=== PATIENT | female | born 1965 | race Caucasian/White ===

== ENCOUNTER 2016-09-21 07:31 | Observation (INO) ==
[2016-09-21] MEDS ORDERED: KETOROLAC 30 MG/ML INJECTION IVP ONE (07:58)
[2016-09-21] MEDS ORDERED: NS 1,000 ML IV ONE (07:58)
[2016-09-21] MEDS ORDERED: SALINE FLUSH 10ml SYRINGE IVF PRN (07:58)
[2016-09-21] MEDS ORDERED: CEFTRIAXONE 2 GM in NS 100 ML IV ONE (07:58)
[2016-09-21] MEDS ORDERED: AMOX/CLAV 875 MG/125 MG TABLET PO ONE (08:01)
--- NOTE | 2016-09-21 08:24 | Emergency Department Report ---
Animal Bite HPI - General Chief Complaint: Animal Bite Stated Complaint: Cat bite Time Seen by Provider: 09/21/16 07:58 - History of Present Illness HPI narrative: 51-year-old female bit on the left hand yesterday by her cat. Over the last month, her father has and there've been a lot of people in and out of the home. There are also doing some remodeling with espinosa being rebuilt, ducts being redone, some significant noise and activity going on with workers. The cat has been very traumatized and is very nervous right now. Patient tried to move him to allow a worker to get at a duct to clean. The cat went ballistic, biting her left hand and scratching and biting on her arm and leg. The cat does not normally active like this. She noted the cat really settled back down. The cat has had no aggressive behavior previously and shows no signs of illness. She noted that her hand began to hurt immediately after the bite and that it started hurting in the knuckle. The tooth penetrated on the palmar side of the hand, but the knuckle hurts on the other side of the hand were no tooth penetrated. During the day the pain became worse. She ultimately went to an urgent care last night and was given a shot of Rocephin and started on Augmentin 875. She did not sleep well last night because of the pain, stating that it was while the heart is nights she's ever had. The redness on her hand continue to grow overnight and she is presented to the ER now with increased pain, swelling and redness of the hand. She does feel some body aches as well. - Related Data Home Medications Medication Instructions Recorded Confirmed Cetirizine HCl [Aller-Gurinder] 10 mg PO HS #0 11/22/09 09/21/16 Acetaminophen [Acetaminophen Extra 1,000 mg PO Q4H PRN 09/21/16 09/21/16 Strength] Atorvastatin [Lipitor] 10 mg PO HS 09/21/16 09/21/16 Esomeprazole [NEXIUM 40 mg Capsule] 40 mg PO HS 09/21/16 09/21/16 Fenofibrate Nanocrystallized 145 mg PO HS 09/21/16 09/21/16 [Fenofibrate] Hydrocodone/APAP 7.5/325 [[place] 1 - 2 tab PO Q4H PRN 09/21/16 09/21/16 7.5/325] Meloxicam [Meloxicam] 15 mg PO HS 09/21/16 09/21/16 Nebivolol HCl [Bystolic] 10 mg PO HS 09/21/16 09/21/16 Previous Rx's Medication Instructions Recorded alprazolam 1 mg tablet 1 mg PO TID PRN #90 tab 08/17/16 amoxicillin 875 mg-potassium 1 tab PO BID 10 Days 09/20/16 clavulanate 125 mg tablet Allergies Allergy/AdvReac Type Severity Reaction Status Date / Time No Known Drug Allergies Allergy Unknown Verified 09/21/16 07:37 Review of Systems All systems: reviewed and negative except as stated PFSH Patient Stated Medical History Hypertension Yes Gastroesophageal Reflux Yes Disease Clinic Medical History (Last Reviewed 08/09/16 @ 15:48 by CEDRICK Nieto ) Hyperlipidemia (Acute Medical) Hypertension (Acute Medical) Insomnia (Acute Medical) Surgical History: *HYSTERECTOMY. *FUSION OF LOWER LUMBAR. *LEFT BOTH ROTATOR CUFF. *3 BILATERAL KNEE SURGERY. *BOTH TRIGGER FINGER RELEASE Family History: Family History (Last Reviewed 09/20/16 @ 16:33 by Laverne Jackson MA) Mother Lung cancer Father Pancreatic cancer - Social History Smoking status: Current every day smoker Physical Exam - Limitations Limitations: no limitations - General General appearance: alert - Normal Exams: Head:: Normocephalic without trauma Chest/Respirations:: Clear all jaime, with good airflow, and symmetry bilaterally Cardiovascular:: Regular rate and rhythm, without murmur or gallop, Pulses 2+ all extremities, capillary refill, <2 seconds all extremities - Extremities Exam Extremities exam: Present: other (left hand is examined, patient's second and third MTP show significant swelling and erythema warm to the touch on the dorsal side. Exquisitely tender to palpation. There is definite swelling over the extensor tendons on the back of the hand as well) Course Vital Signs Temperature 98.3 F 09/21/16 07:35 Pulse Rate 63 09/21/16 07:35 Respiratory Rate 16 09/21/16 07:35 Blood Pressure 170/85 H 09/21/16 07:35 Pulse Oximetry 100 09/21/16 07:35 Temperature 97.8 F 09/21/16 08:57 Pulse Rate 54 L 09/21/16 08:57 Respiratory Rate 16 09/21/16 08:57 Blood Pressure 158/86 H 09/21/16 08:57 Pulse Oximetry 98 09/21/16 08:57 Animal Bite - MDM Narrative Medical decision making narrative: White count returns normal, CRP is elevated at 15.9. Spoke with infectious disease, Unasyn IV was recommended as treatment. Dr. Peace came and saw the patient and evaluated her. He also agreed with IV antibiotic treatment at this point. Patient be placed in observation with Unasyn IV. She was given Toradol 30 mg while in the ED, which helped significantly with her pain. - Lab Data Result diagrams: 09/21/16 08:06 09/21/16 08:06 Lab Results 09/21/16 09/21/16 09/21/16 Range/Units 08:06 08:06 08:06 WBC 8.3 (4.5-11.0) T/MM3 RBC 4.76 (4.00-5.20) M/MM3 Hgb 14.0 (12-16) GM/DL Hct 42.5 (36-46) % MCV 89.3 (80-100) UM3 MCH 29.4 (26-34) UUG MCHC 32.9 (31-37) GM/DL RDW Std Deviation 42.7 (36.9-50.2) FL Plt Count 312 (130-400) T/MM3 MPV 10.4 (9.4-12.4) UM3 Immature Gran % (Auto) 0.4 (0.0-0.5) % Neut % (Auto) 64.3 (33-66) % Lymph % (Auto) 23.8 (23-45) % [place] % (Auto) 7.5 (0-9.0) % Eos % (Auto) 3.6 (0-4) % Baso % (Auto) 0.4 (0-2) % Neut # 5.3 (1.8-7.7) T/MM3 Lymph # 2.0 (1-4.8) T/MM3 [place] # 0.6 (0-0.8) T/MM3 Eos # 0.3 (0-0.5) T/MM3 Baso # 0.0 (0-0.2) T/MM3 Abs Immat Gran (auto) 0.03 (0.00-0.03) T/MM3 Turbidity < 20 (0-20) Sodium 143 (134-144) MEQ/L Potassium 4.7 (3.6-5) MEQ/L Chloride 109 H (98-107) MEQ/L Carbon Dioxide 22 (22-30) MEQ/L Anion Gap 12 (5-15) MEQ/L BUN 13.0 (7-17) MG/DL Creatinine 0.8 (0.7-1.2) MG/DL GFR Calculation 76 BUN/Creatinine Ratio 16 (6-26) RATIO Glucose 127 H (65-110) MG/DL Calculated Osmolality 277 (261-280) MOSM/KG Calcium 9.7 (8.4-10.2) MG/DL Icterus Index < 2 (0-7) C-Reactive Protein 15.6 H (0-9) MG/L Specimen Hemolysis < 15 (0-25) Disposition Clinical Impression: Cat bite of hand Disposition: 02 To OBS NM Condition: Stable Prescriptions: No Action Cetirizine HCl [Aller-Gurinder] 10 mg PO HS #0 Meloxicam [Meloxicam] 15 mg PO HS Fenofibrate Nanocrystallized [Fenofibrate] 145 mg PO HS Atorvastatin [Lipitor] 10 mg PO HS Esomeprazole [NEXIUM 40 mg Capsule] 40 mg PO HS Acetaminophen [Acetaminophen Extra Strength] 1,000 mg PO Q4H PRN PRN Reason: Pain Nebivolol HCl [Bystolic] 10 mg PO HS Hydrocodone/APAP 7.5/325 [[place] 7.5/325] 1 - 2 tab PO Q4H PRN PRN Reason: Pain alprazolam 1 mg tablet 1 mg PO TID PRN #90 tab PRN Reason: anxiety amoxicillin 875 mg-potassium clavulanate 125 mg tablet 1 tab PO BID 10 Days Referrals: Ron Mejia DO [Family Provider] - Time of Disposition: 09:30 - Seen By: physician
[2016-09-21] MEDS ORDERED: AMPICILLIN/SULBACTAM 3 G in NS 100 ML IV ONE (09:23)
[2016-09-21] MEDS: NS 1,000 ML IV SCH (09:45)
[2016-09-21] MEDS ORDERED: ONDANSETRON 4 MG/2 ML INJECTION IVP PRN (10:23)
[2016-09-21 10:28] VITALS: BMI 28.1
--- NOTE | 2016-09-21 11:31 | Pharmacy Consult- Renal Dosing ---
Pharamcy Consul-Renal Dosing - Laboratory Information UNASYN DOSINyo F with cat bite. Renal Fx is stable with latest SCr = 0.8mg/dl Calculated CrCl = 84 ml/min Received Ampicillin/Sulbactam (Unasyn*) 3gm initial dose in ED. Will continue Ampicillin/Sulbactam @ 3gm IV q6hrs. Thank you
[2016-09-21] MEDS: HYDROCODONE/APAP 7.5 MG/325 MG TABLET PO PRN ×4 (12:38→22:37)
--- NOTE | 2016-09-21 14:04 | Orthopedic History & Physical ---
Orthopedic HPI - HPI Elements left hand Pain: stabbing, throbbing Onset: gradual Severity: moderate Duration: 12-24 hours How Often Does Pain Occur: constant Previous Surgery: No Aggrevated by: all activity Associated Symptoms: swelling, warmth - HPI Comments Mrs. Tomas is a kind 51-year-old female who was bitten by a cat yesterday morning. She had increased pain and swelling and she presented to urgent care last night were she was given a dose of Rocephin and sent home on Augmentin. Today to pain and swelling is worse since that she presented to the emergency room here [facility]. Dr. Sinclair with index disease was contacted and she recommended observation stay here at the hospital with IV antibiotics. I was consulted for further evaluation. She denies any previous problems with this hand and is otherwise in her normal state of health before yesterday. Her pain is located mainly in the second MCP joint with any motion. [facility] Clinic Medical History (Last Updated 09/21/16 @ 09:29 by ePtr Morrison MD) Hyperlipidemia (Acute Medical) Hypertension (Acute Medical) Insomnia (Acute Medical) Surgical History: *HYSTERECTOMY. *FUSION OF LOWER LUMBAR. *LEFT BOTH ROTATOR CUFF. *3 BILATERAL KNEE SURGERY. *BOTH TRIGGER FINGER RELEASE Family History: Family History (Last Reviewed 09/20/16 @ 16:33 by Laverne Jackson MA) Mother Lung cancer Father Pancreatic cancer - Social History Smoking status: Current every day smoker Review of Systems - Constitutional Constitutional: Absent: chills, fever(s), night sweats - Cardiovascular Cardiovascular: Absent: chest pain, palpitations - Respiratory Respiratory: Absent: cough, dyspnea - Gastrointestinal Gastrointestinal: Absent: abdominal pain, nausea, vomiting - Genitourinary Genitourinary Female: Absent: dysuria - Musculoskeletal Musculoskeletal: Present: as per HPI - Integumentary/Breasts Integumentary: Absent: lesions, rash - Neurological Neurological: Absent: numbness, tingling Medications Home Medications Medication Instructions Recorded Confirmed Type Cetirizine HCl [Aller-Gurinder] 10 mg PO HS #0 11/22/09 09/21/16 History Acetaminophen [Acetaminophen Extra 1,000 mg PO Q4H PRN 09/21/16 09/21/16 History Strength] Atorvastatin [Lipitor] 10 mg PO HS 09/21/16 09/21/16 History Esomeprazole [NEXIUM 40 mg Capsule] 40 mg PO HS 09/21/16 09/21/16 History Fenofibrate Nanocrystallized 145 mg PO HS 09/21/16 09/21/16 History [Fenofibrate] Hydrocodone/APAP 7.5/325 [[place] 1 - 2 tab PO Q4H PRN 09/21/16 09/21/16 History 7.5/325] Meloxicam [Meloxicam] 15 mg PO HS 09/21/16 09/21/16 History Nebivolol HCl [Bystolic] 10 mg PO HS 09/21/16 09/21/16 History Allergies Allergy/AdvReac Type Severity Reaction Status Date / Time No Known Drug Allergies Allergy Unknown Verified 09/21/16 07:37 Orthopedic Exam Vital signs: Temperature 97.2 F 09/21/16 10:30 Pulse Rate 55 L 09/21/16 10:30 Respiratory Rate 18 09/21/16 10:30 Blood Pressure 156/92 H 09/21/16 10:30 Pulse Oximetry 100 09/21/16 10:30 Oxygen Delivery Method Room Air - Constitutional General Appearance: Present: no acute distress, well developed, well nourished - Respiratory Exam Present: non-labored - Cardiovascular Exam Present: other (radial pulse intact) - Extremities Exam Comments: There is swelling centralized around the second MCP joint of the left hand. There is a small bite jeet to the radial aspect of the second MCP joint. She does not have any significant fusiform swelling to her digits. She is able to actively flex and extend all MCP joints and IP joints. Active and passive range of motion of the second MCP joint is very painful. No fluctuance noted and no abnormal swelling in the palm. No abnormal swelling over the flexor tendons of any digit. - Labs Result Diagrams: 09/21/16 08:06 09/21/16 08:06 Orthopedic Assessment and Plan (1) Cat bite of hand Status: Acute Qualifiers: Encounter type: initial encounter Laterality: left Qualified Code(s): S61.452A - Open bite of left hand, initial encounter; W55.01XA - Bitten by cat, initial encounter Assessment and Plan: I agree with inpatient observation given that she is failed outpatient Augmentin. My main concern is for a septic arthritis of the second MCP joint. We will start Unasyn and if symptoms do not improve tomorrow consider an exploratory washout of the joint versus an MRI. She agreed with this plan and all questions were answered. Hospital Course Summary Disclaimer: The visit summary below is not to be considered part of the above Progress Note.
[2016-09-21] MEDS: AMPICILLIN/SULBACTAM 3 G in NS 100 ML IV SCH ×2 (14:32→20:38)
[2016-09-21] MEDS ORDERED: ALPRAZolam 1 MG TABLET PO PRN (14:57)
[2016-09-21] MEDS ORDERED: FENOFIBRATE 145 MG TABLET PO SCH (22:00)
[2016-09-21] MEDS ORDERED: ATORVASTATIN 10 MG TABLET PO SCH (22:00)
[2016-09-21] MEDS ORDERED: CETIRIZINE 10 MG TABLET PO SCH (22:00)
[2016-09-21] MEDS ORDERED: OMEPRAZOLE 20 MG CAPSULE PO SCH (22:00)
[2016-09-21] MEDS ORDERED: MELOXICAM 15 MG TABLET PO SCH (22:00)
[2016-09-21 23:31] VITALS: PULSE 61
[2016-09-22] MEDS: NS 1,000 ML IV SCH ×2 (00:36→13:17)
[2016-09-22] MEDS: AMPICILLIN/SULBACTAM 3 G in NS 100 ML IV SCH ×3 (02:18→14:23)
[2016-09-22 07:10] VITALS: BP 143/88; RESP 16; TEMP 97.3; O2SAT 99
--- NOTE | 2016-09-22 07:55 | Orthopedic Progress Note ---
Date: Subjective/Severity of Illness: Domonique feels that the overall swelling has improved although the pain in her second MCP joint persists without improvement. She denies any other new symptoms. No chest pain shortness of breath fever or chills. Orthopedic Objective Vital signs: Temperature 97.3 F 09/22/16 07:06 Pulse Rate 61 09/22/16 07:06 Respiratory Rate 16 09/22/16 07:06 Blood Pressure 143/88 H 09/22/16 07:06 Pulse Oximetry 99 09/22/16 07:06 Oxygen Delivery Method Room Air Height and Weight: Height 5 ft 4 in Weight 74.9 kg Body Mass Index 28.1 - Constitutional General Appearance: Present: no acute distress, well developed, well nourished - Respiratory Exam Present: non-labored - Extremities Exam Comments: Left hand swelling centralized around the second MCP joint remains but is improved. Erythema also is improved but still remains. Continued pain with active and passive range of motion of the second MCP joint. All other joints move well without pain. - Labs Result Diagrams: 09/21/16 08:06 09/21/16 08:06 Orthopedic Assessment and Plan (1) Cat bite of hand Status: Acute Qualifiers: Encounter type: initial encounter Laterality: left Qualified Code(s): S61.452A - Open bite of left hand, initial encounter; W55.01XA - Bitten by cat, initial encounter Assessment and Plan: Due to persistence of joint pain and swelling I recommended MRI to rule out deep abscess and/or septic arthritis. If either one of these persistent recommended drainage of abscess and/or irrigation and debridement of left second MCP joint. We will keep her nothing by mouth until after the MRI results. Hospital Course Summary Disclaimer: The visit summary below is not to be considered part of the above Progress Note.
[2016-09-22] MEDS: MORPHINE SULFATE 10 MG SYRINGE IV PRN ×2 (08:27→11:37)
[2016-09-22] MEDS ORDERED: GADOBUTROL 10mMol/10ml INJECTION IVP ONE (10:18)
[2016-09-22] MEDS ORDERED: SALINE FLUSH 10ml SYRINGE ONE (10:18)
--- NOTE | 2016-09-22 11:59 | Magnetic Resonance Report ---
Indication: possible left hand abscess, septic arthritis, cat bite PROCEDURE: MR hand LT wo/w con: Encounter: Initial Comparison: None Technique: Multiplanar multisequence MR imaging of the left hand was performed with and without contrast. Contrast: 7.5 mL Gadavist Findings: Bone marrow signal intensity is normal. No evidence of acute fracture. The areas of injury are marked with markers adjacent to the second and third metacarpal heads. There is significant soft tissue edema and mild swelling in the dorsal soft tissues here adjacent to the extensor tendons. The tendons appear intact. Edema extends around the radial aspect of the palm beneath the second metacarpal head. Postcontrast images show expected enhancement within this area of edema but no focal drainable fluid collection or abscess. No abnormal bone marrow enhancement. Intrinsic hand muscular signal intensity is normal. Flexor tendons appear intact. Impression: Subcutaneous edema and enhancement surrounding the distal second metacarpal consistent with a cellulitis. No drainable abscess or evidence for osteomyelitis. .
--- NOTE | 2016-09-22 13:06 | Discharge Instructions ---
Discharge Plan - Med Rec/Dispo Referrals/Follow Up: Franky Valentino PA [Physician [facility] [employer] [facility]] - 09/24/16 8:30 am Marti Instructions: Wound Infection (DC), [facility] General Instructions Additional Instructions: Keep your injured site clean and dry. Report increased pain, drainage or fever. Prescriptions: New Hydrocodone/APAP 7.5/325 [[place] 7.5/325] 1 - 2 tab PO Q4H PRN #50 tablet PRN Reason: Pain Continue Cetirizine HCl [Aller-Gurinder] 10 mg PO HS #0 Meloxicam 15 mg PO HS Fenofibrate Nanocrystallized [Fenofibrate] 145 mg PO HS Atorvastatin [Lipitor] 10 mg PO HS Esomeprazole [NEXIUM 40 mg Capsule] 40 mg PO HS Acetaminophen [Acetaminophen Extra Strength] 1,000 mg PO Q4H PRN PRN Reason: Pain Nebivolol HCl [Bystolic] 10 mg PO HS Hydrocodone/APAP 7.5/325 [[place] 7.5/325] 1 - 2 tab PO Q4H PRN PRN Reason: Pain alprazolam 1 mg tablet 1 mg PO TID PRN #90 tab PRN Reason: anxiety amoxicillin 875 mg-potassium clavulanate 125 mg tablet 1 tab PO BID 10 Days - Disposition 01 Discharged Home, Self-Care
== END 2016-09-22 15:15 | disposition home or self-care (01) ==
LOC: ED 07:31 → SRG 07:31
PROVIDERS: ADMIT Orthopaedic Surgery; ATTEND Orthopaedic Surgery